=== PATIENT | female | born 1960 | race African-American/Black ===

== ENCOUNTER 2018-02-04 14:35 | Outpatient (CLI) | payer BC | END 2018-02-04 14:36 | disposition home or self-care (01) | LOC: BICMAMMO 14:35 | PROVIDERS: ATTEND Family Medicine | DX: Z12.31 Encounter for screening mammogram for malignant neoplasm of breast (principal) | CPT/HCPCS: 77063; 77067 ==

== ENCOUNTER 2023-03-06 04:15 | Inpatient (IN) | payer SELFPAY ==
[2023-03-06 05:40] VITALS: BMI 59.3
[2023-03-06] MEDS ORDERED: Ondansetron ODT 4 MG TAB SL PRN (05:45)
[2023-03-06] MEDS ORDERED: Ondansetron PF 4 MG/2 ML Vial IVP PRN (05:45)
[2023-03-06] MEDS ORDERED: Acetaminophen 325 MG TAB PO PRN ×2 (05:45→17:54)
[2023-03-06] MEDS: Sodium Chloride 0.9% 1,000 ML IV SCH ×2 (06:03→15:13)
[2023-03-06] MEDS ORDERED: Dextrose 50% Abboject 50 ML SYRINGE SLOW IVP PRN (08:00)
[2023-03-06] MEDS ORDERED: Glucagon 1 MG/ML KIT IM PRN (08:00)
[2023-03-06] MEDS ORDERED: HumaLOG 300 UNITS/3 ML VIAL SC PRN (08:00)
[2023-03-06] MEDS ORDERED: Dextrose 5% in Water 1,000 ML IV PRN (08:00)
[2023-03-06] MEDS ORDERED: VANCOMYCIN IVPB PRN (08:04)
[2023-03-06 11:19] LABS: Hemoglobin A1c 6.5 % (4.0-6.0)
[2023-03-06] MEDS: HumaLOG 300 UNITS/3 ML VIAL SC PRN ×2 (12:54→17:31)
[2023-03-06] MEDS ORDERED: Cefepime 2 GM in Sodium Chloride 0.9% 100 ML IVPB SCH (15:00)
[2023-03-06] MEDS ORDERED: Vancomycin 2 GM in Premix Bag 1 BAG IVPB SCH (16:00)
[2023-03-06] MEDS ORDERED: Furosemide 20 MG/2 ML VIAL SLOW IVP SCH (16:15)
[2023-03-06] MEDS: VANCOMYCIN 1.25 GM/250 ML BAG 1.25 GM in Premix Bag 1 BAG IVPB SCH (17:30)
[2023-03-06] MEDS: Acetaminophen 500 MG TAB PO PRN (18:22)
[2023-03-07] MEDS: Ketorolac Tromethamine 30 MG/ML VIAL IVP PRN ×3 (00:26→21:31)
[2023-03-07] MEDS: Acetaminophen 500 MG TAB PO PRN ×3 (00:27→21:30)
[2023-03-07] MEDS: cefTRIAXone\\ROCEPHIN 2 GM in Sodium Chloride 0.9% 100 ML IVPB SCH (02:30)
[2023-03-07] MEDS: VANCOMYCIN 1.25 GM/250 ML BAG 1.25 GM in Premix Bag 1 BAG IVPB SCH ×2 (03:00→17:17)
[2023-03-07 06:54] LABS: Mean Corpuscular HGB CONC 33.3 g/dL (32.0-36.0); Mean Corpuscular Hemoglobin 30.4 pg (27.0-31.0); Mean Corpuscular Volume 91.1 fl (78.0-98.0); Platelet Count 155 10x3/uL (130-400); RBC Distribution Width 12.9 % (11.5-14.5); Red Blood Cell (RBC) Count 3.95 mill/uL (4.20-5.40)
[2023-03-07 07:00] LABS: Delete Auto Diff?? YES; Manual Diff?? YES
[2023-03-07 07:14] LABS: ALT (SGPT) 41 U/L (8-55); AST (SGOT) 42 U/L (5-34); Albumin 3.6 g/dL (3.4-4.8); Alkaline Phosphatase 131 U/L (40-110); Anion Gap 9 mmol/L (10-20); BUN (Urea Nitrogen) 12 mg/dL (9.8-20.1); Bilirubin, Total 1.4 mg/dL (0.2-1.2); Calc. Creatinine Clearance 155 mL/min (70-130); Calcium 9.1 mg/dL (7.8-10.44); Carbon Dioxide 25 mmol/L (23-31); Chloride 105 mmol/L (98-107); Estimated GFR 70; Globulin 3.6 g/dL (2.4-3.5); Glucose 139 mg/dL (80-115); Potassium 3.3 mmol/L (3.5-5.1); Protein, Total 7.2 g/dL (5.8-8.1); Sodium 136 mmol/L (136-145)
[2023-03-07 08:09] LABS: Band 33 % (5-11); Eosinophils 10 % (0-10); Lymphocytes 11 % (21-51); Monocytes 3 % (0-10); Neutrophil 41 % (42-75); Reactive Lymphocytes 2 % (0-10)
[2023-03-07 08:10] LABS: Dohle Bodies SLIGHT; Giant Platelets SLIGHT HPF (0-5); Large Platelets MODERATE (None Seen)
[2023-03-07 08:15] LABS: Polychromasia SLIGHT = 2-3 cells (100X) (0-2/hpf)
[2023-03-07 15:23] LABS: Vancomycin, Trough 8.9 ug/mL
[2023-03-07] MEDS: Vancomycin 1 GM in Premix Bag 1 BAG IVPB SCH (17:39)
[2023-03-08] MEDS: Vancomycin 1 GM in Premix Bag 1 BAG IVPB SCH ×3 (01:30→17:30)
[2023-03-08] MEDS: cefTRIAXone\\ROCEPHIN 2 GM in Sodium Chloride 0.9% 100 ML IVPB SCH (04:04)
[2023-03-08] MEDS: HumaLOG 300 UNITS/3 ML VIAL SC PRN ×3 (04:46→17:31)
[2023-03-08 07:15] LABS: #Eosinphils 0.1 thou/uL (0.0-0.7); #Monocytes 0.3 thou/uL (0.11-0.59); #Neutrophils 7.2 thou/uL (1.40-6.50); %Basophils 0.3 % (0.0-1.0); %Eosinophils 1.5 % (0.0-10.0); %Lymphocytes 10.1 % (21.0-51.0); %Monocytes 3.8 % (0.0-10.0); %Neutrophils 83.8 % (42.0-75.0); Hemoglobin 10.8 g/dL (12.0-16.0); Mean Corpuscular HGB CONC 32.7 g/dL (32.0-36.0); Mean Corpuscular Volume 91.7 fl (78.0-98.0); Mean Platelet Volume 13.1 fL (7.4-10.4); Platelet Count 136 10x3/uL (130-400); RBC Distribution Width 12.8 % (11.5-14.5); White Blood Cell (WBC) Count 8.6 10x3/uL (4.8-10.8)
[2023-03-08 07:38] LABS: Anion Gap 10 mmol/L (10-20); BUN (Urea Nitrogen) 12 mg/dL (9.8-20.1); Calc. Creatinine Clearance 160 mL/min (70-130); Carbon Dioxide 25 mmol/L (23-31); Chloride 105 mmol/L (98-107); Potassium 3.2 mmol/L (3.5-5.1); Sodium 137 mmol/L (136-145)
[2023-03-08 07:39] LABS: Albumin 3.2 g/dL (3.4-4.8); Bilirubin, Total 0.9 mg/dL (0.2-1.2); Calcium 8.9 mg/dL (7.8-10.44); Estimated GFR 73; Globulin 3.5 g/dL (2.4-3.5); Glucose 170 mg/dL (80-115); Protein, Total 6.7 g/dL (5.8-8.1)
[2023-03-08 07:40] LABS: ALT (SGPT) 38 U/L (8-55); AST (SGOT) 36 U/L (5-34); Alkaline Phosphatase 140 U/L (40-110)
[2023-03-08] MEDS: Acetaminophen 500 MG TAB PO PRN (08:20)
[2023-03-08] MEDS: Ketorolac Tromethamine 30 MG/ML VIAL IVP PRN ×2 (08:23→20:44)
[2023-03-08] MEDS: metroNIDAZOLE 500 MG in Premix Bag 1 BAG IVPB SCH ×2 (12:21→20:44)
[2023-03-08] MEDS: Cefepime 2 GM in Sodium Chloride 0.9% 100 ML IVPB SCH (12:21)
[2023-03-08] MEDS ORDERED: metFORMIN 500 MG TAB PO SCH (17:00)
[2023-03-08 17:01] LABS: Vancomycin, Trough 14.2 ug/mL
[2023-03-08] MEDS: metFORMIN 500 MG TAB PO SCH (17:30)
[2023-03-08] MEDS ORDERED: Fluconazole 100 MG TAB PO SCH (19:15)
[2023-03-08] MEDS: Metoprolol Tartrate 25 MG TAB PO SCH (20:46)
[2023-03-09] MEDS: Vancomycin 1 GM in Premix Bag 1 BAG IVPB SCH ×3 (00:36→17:22)
[2023-03-09] MEDS: Cefepime 2 GM in Sodium Chloride 0.9% 100 ML IVPB SCH ×3 (00:36→23:59)
[2023-03-09] MEDS: metroNIDAZOLE 500 MG in Premix Bag 1 BAG IVPB SCH ×3 (04:25→21:21)
[2023-03-09 06:04] LABS: #Eosinphils 0.2 thou/uL (0.0-0.7); #Monocytes 0.4 thou/uL (0.11-0.59); #Neutrophils 5.4 thou/uL (1.40-6.50); %Basophils 0.4 % (0.0-1.0); %Eosinophils 3.1 % (0.0-10.0); %Lymphocytes 12.5 % (21.0-51.0); %Monocytes 5.8 % (0.0-10.0); %Neutrophils 77.5 % (42.0-75.0); Hemoglobin 10.3 g/dL (12.0-16.0); Mean Corpuscular HGB CONC 32.9 g/dL (32.0-36.0); Mean Corpuscular Hemoglobin 29.9 pg (27.0-31.0); Platelet Count 168 10x3/uL (130-400); RBC Distribution Width 12.9 % (11.5-14.5); Red Blood Cell (RBC) Count 3.44 mill/uL (4.20-5.40)
[2023-03-09 06:34] LABS: Anion Gap 14 mmol/L (10-20); BUN (Urea Nitrogen) 10 mg/dL (9.8-20.1); Calc. Creatinine Clearance 174 mL/min (70-130); Carbon Dioxide 22 mmol/L (23-31); Chloride 106 mmol/L (98-107); Potassium 3.3 mmol/L (3.5-5.1); Sodium 139 mmol/L (136-145)
[2023-03-09 06:35] LABS: ALT (SGPT) 40 U/L (8-55); AST (SGOT) 35 U/L (5-34); Albumin 3.1 g/dL (3.4-4.8); Alkaline Phosphatase 145 U/L (40-110); Calcium 9.1 mg/dL (7.8-10.44); Estimated GFR 81; Globulin 3.5 g/dL (2.4-3.5); Glucose 138 mg/dL (80-115); Protein, Total 6.6 g/dL (5.8-8.1)
[2023-03-09] MEDS: Fluconazole 100 MG TAB PO SCH (08:28)
[2023-03-09] MEDS: metFORMIN 500 MG TAB PO SCH ×2 (08:28→17:22)
[2023-03-09] MEDS: Metoprolol Tartrate 25 MG TAB PO SCH ×2 (08:29→21:21)
[2023-03-09] MEDS: Acetaminophen 500 MG TAB PO PRN (12:26)
[2023-03-09] MEDS: Ketorolac Tromethamine 30 MG/ML VIAL IVP PRN (12:27)
[2023-03-09] MEDS ORDERED: Potassium Chloride 20 MEQ TAB PO SCH (14:30)
[2023-03-09 16:58] LABS: Vancomycin, Trough 17.1 ug/mL
[2023-03-10] MEDS: metroNIDAZOLE 500 MG in Premix Bag 1 BAG IVPB SCH (05:05)
[2023-03-10] MEDS: Acetaminophen 500 MG TAB PO PRN ×2 (05:09→23:39)
[2023-03-10] MEDS ORDERED: LevoFLOXacin 750 MG TAB PO SCH (06:00)
[2023-03-10 06:12] LABS: #Basophils 0.1 thou/uL (0.0-0.2); #Eosinphils 0.2 thou/uL (0.0-0.7); #Monocytes 0.4 thou/uL (0.11-0.59); #Neutrophils 3.6 thou/uL (1.40-6.50); %Basophils 0.9 % (0.0-1.0); %Eosinophils 4.1 % (0.0-10.0); %Lymphocytes 18.1 % (21.0-51.0); %Monocytes 8.1 % (0.0-10.0); %Neutrophils 67.1 % (42.0-75.0); Hemoglobin 10.9 g/dL (12.0-16.0); Mean Corpuscular HGB CONC 32.8 g/dL (32.0-36.0); Mean Corpuscular Hemoglobin 29.9 pg (27.0-31.0); Mean Platelet Volume 12.2 fL (7.4-10.4); Platelet Count 193 10x3/uL (130-400); RBC Distribution Width 13.1 % (11.5-14.5); Red Blood Cell (RBC) Count 3.65 mill/uL (4.20-5.40); White Blood Cell (WBC) Count 5.4 10x3/uL (4.8-10.8)
[2023-03-10 06:43] LABS: ALT (SGPT) 44 U/L (8-55); AST (SGOT) 44 U/L (5-34); Albumin 3.2 g/dL (3.4-4.8); Alkaline Phosphatase 167 U/L (40-110); Anion Gap 12 mmol/L (10-20); BUN (Urea Nitrogen) 11 mg/dL (9.8-20.1); Bilirubin, Total 0.7 mg/dL (0.2-1.2); Calc. Creatinine Clearance 178 mL/min (70-130); Calcium 9.2 mg/dL (7.8-10.44); Carbon Dioxide 24 mmol/L (23-31); Chloride 105 mmol/L (98-107); Estimated GFR 83; Glucose 140 mg/dL (80-115); Potassium 3.8 mmol/L (3.5-5.1); Protein, Total 7.2 g/dL (5.8-8.1); Sodium 137 mmol/L (136-145)
[2023-03-10] MEDS: Fluconazole 100 MG TAB PO SCH (08:28)
[2023-03-10] MEDS: metFORMIN 500 MG TAB PO SCH ×2 (08:28→16:20)
[2023-03-10] MEDS: Vancomycin 1 GM in Premix Bag 1 BAG IVPB SCH ×2 (08:28)
[2023-03-10] MEDS: Metoprolol Tartrate 25 MG TAB PO SCH ×2 (08:28→20:29)
[2023-03-10] MEDS: metroNIDAZOLE 500 MG TAB PO SCH ×3 (10:52→20:26)
[2023-03-10] MEDS: Isosorbide Mononitrate 20 MG TAB PO SCH ×2 (10:52→10:55)
[2023-03-10] MEDS: LevoFLOXacin 750 MG TAB PO SCH (10:52)
[2023-03-10] MEDS: Sulfameth/Trimethoprim DS 800-160mg TAB PO SCH (20:26)
[2023-03-10] MEDS ORDERED: Sulfameth/Trimethoprim DS 800-160mg TAB PO SCH (21:00)
[2023-03-11 05:59] LABS: #Basophils 0.1 thou/uL (0.0-0.2); #Eosinphils 0.2 thou/uL (0.0-0.7); #Monocytes 0.5 thou/uL (0.11-0.59); #Neutrophils 3.8 thou/uL (1.40-6.50); %Basophils 0.9 % (0.0-1.0); %Eosinophils 3.1 % (0.0-10.0); %Lymphocytes 18.6 % (21.0-51.0); %Monocytes 8.8 % (0.0-10.0); %Neutrophils 64.5 % (42.0-75.0); Hemoglobin 10.6 g/dL (12.0-16.0); Mean Corpuscular Hemoglobin 29.5 pg (27.0-31.0); Mean Corpuscular Volume 92.2 fl (78.0-98.0); Mean Platelet Volume 11.9 fL (7.4-10.4); Platelet Count 241 10x3/uL (130-400); RBC Distribution Width 13.4 % (11.5-14.5); Red Blood Cell (RBC) Count 3.59 mill/uL (4.20-5.40); White Blood Cell (WBC) Count 5.8 10x3/uL (4.8-10.8)
[2023-03-11 06:30] LABS: ALT (SGPT) 41 U/L (8-55); AST (SGOT) 36 U/L (5-34); Albumin 3.2 g/dL (3.4-4.8); Alkaline Phosphatase 170 U/L (40-110); Anion Gap 12 mmol/L (10-20); BUN (Urea Nitrogen) 9 mg/dL (9.8-20.1); Bilirubin, Total 0.6 mg/dL (0.2-1.2); Calc. Creatinine Clearance 176 mL/min (70-130); Calcium 9.5 mg/dL (7.8-10.44); Carbon Dioxide 26 mmol/L (23-31); Chloride 104 mmol/L (98-107); Estimated GFR 82; Glucose 129 mg/dL (80-115); Potassium 3.7 mmol/L (3.5-5.1); Protein, Total 7.2 g/dL (5.8-8.1); Sodium 138 mmol/L (136-145)
[2023-03-11] MEDS: Fluconazole 100 MG TAB PO SCH (08:21)
[2023-03-11] MEDS: Sulfameth/Trimethoprim DS 800-160mg TAB PO SCH ×2 (08:21→21:46)
[2023-03-11] MEDS: Acetaminophen 500 MG TAB PO PRN ×2 (08:21→21:44)
[2023-03-11] MEDS: metFORMIN 500 MG TAB PO SCH ×2 (08:22→16:18)
[2023-03-11] MEDS: Metoprolol Tartrate 25 MG TAB PO SCH ×2 (08:22→21:47)
[2023-03-11] MEDS: metroNIDAZOLE 500 MG TAB PO SCH ×3 (08:22→21:45)
[2023-03-11] MEDS: Isosorbide Mononitrate 20 MG TAB PO SCH (08:23)
[2023-03-11] MEDS: LevoFLOXacin 750 MG TAB PO SCH (11:37)
[2023-03-11] MEDS ORDERED: Ondansetron ODT 8 MG TAB SL PRN (20:13)
[2023-03-12 07:12] LABS: Hemoglobin 10.6 g/dL (12.0-16.0); Mean Corpuscular HGB CONC 32.5 g/dL (32.0-36.0); Mean Corpuscular Hemoglobin 29.8 pg (27.0-31.0); Mean Corpuscular Volume 91.6 fl (78.0-98.0); Mean Platelet Volume 11.2 fL (7.4-10.4); Platelet Count 264 10x3/uL (130-400); RBC Distribution Width 13.7 % (11.5-14.5); Red Blood Cell (RBC) Count 3.56 mill/uL (4.20-5.40); White Blood Cell (WBC) Count 6.2 10x3/uL (4.8-10.8)
[2023-03-12 07:16] LABS: Delete Auto Diff?? YES; Manual Diff?? YES
[2023-03-12 07:35] LABS: ALT (SGPT) 40 U/L (8-55); AST (SGOT) 51 U/L (5-34); Alkaline Phosphatase 158 U/L (40-110); Anion Gap 13 mmol/L (10-20); BUN (Urea Nitrogen) 9 mg/dL (9.8-20.1); Bilirubin, Total 0.5 mg/dL (0.2-1.2); Calc. Creatinine Clearance 168 mL/min (70-130); Calcium 9.1 mg/dL (7.8-10.44); Carbon Dioxide 25 mmol/L (23-31); Chloride 103 mmol/L (98-107); Estimated GFR 78; Globulin 3.9 g/dL (2.4-3.5); Glucose 117 mg/dL (80-115); Potassium 3.7 mmol/L (3.5-5.1); Protein, Total 6.9 g/dL (5.8-8.1); Sodium 137 mmol/L (136-145)
[2023-03-12] MEDS: Isosorbide Mononitrate 20 MG TAB PO SCH (08:39)
[2023-03-12] MEDS: metFORMIN 500 MG TAB PO SCH (08:39)
[2023-03-12] MEDS: Sulfameth/Trimethoprim DS 800-160mg TAB PO SCH (08:39)
[2023-03-12] MEDS: metroNIDAZOLE 500 MG TAB PO SCH ×2 (08:39→16:50)
[2023-03-12] MEDS: Fluconazole 100 MG TAB PO SCH (08:39)
[2023-03-12] MEDS: Metoprolol Tartrate 25 MG TAB PO SCH (08:39)
[2023-03-12 09:37] LABS: Band 7 % (5-11); Blast 1 % (0-0); CellaVision Operator ID LAB.GE; Eosinophils 1 % (0-10); Large Platelets 4.9 % (0-5); Lymphocytes 12 % (21-51); Monocytes 4 % (0-10); Myelocyte 3 % (0-0); Neutrophil 69 % (42-75); Platelet Adequacy Comment Platelets Normal; Polychromasia SLIGHT = 2-3 cells HPF (0-2); Reactive Lymphocytes 3 % (0-10); Total Cell Count 102
[2023-03-12] MEDS: LevoFLOXacin 750 MG TAB PO SCH (10:54)
[2023-03-12] MEDS ORDERED: Saccharomyces boulardii 250 MG CAP PO SCH (11:00)
[2023-03-12 16:44] VITALS: BP 126/75; TEMP 98.2
[2023-03-13] MEDS ORDERED: Saccharomyces boulardii 250 MG CAP PO SCH (09:00)
== END 2023-03-12 17:00 | disposition home or self-care (01) | DRG 607 ==
LOC: T4-B 05:28
PROVIDERS: ADMIT Student in an Organized Health Care Education/Training Program; ATTEND Student in an Organized Health Care Education/Training Program
DX: M79.3 Panniculitis, unspecified (principal); Z68.43 Body mass index [BMI] 50.0-59.9, adult; E66.01 Morbid (severe) obesity due to excess calories; I50.9 Heart failure, unspecified; E11.9 Type 2 diabetes mellitus without complications; R91.1 Solitary pulmonary nodule; B95.4 Other streptococcus as the cause of diseases classified elsewhere; Z79.899 Other long term (current) drug therapy; Z98.891 History of uterine scar from previous surgery; Z87.891 Personal history of nicotine dependence
CPT/HCPCS: 36415; 36416; 71046; 76705; 76857; 80053; 80202; 83036; 85025; 87070; 87077; 87205; 97139; J0692; J0696; J1650; J1815; J1885; J3370; J3370-JW; J3490; J7050; Q0162

== ENCOUNTER 2023-10-15 13:29 | Outpatient (CLI) | payer MEDICARE | END 2023-10-15 13:30 | disposition home or self-care (01) | LOC: BICMAMMO 13:29 | PROVIDERS: ATTEND Family Medicine | DX: Z12.31 Encounter for screening mammogram for malignant neoplasm of breast (principal); Z80.3 Family history of malignant neoplasm of breast | CPT/HCPCS: 77063; 77067 ==